=== PATIENT | male | born 1975 | race African-American/Black ===

== ENCOUNTER 2018-05-02 15:02 | Outpatient (CLI) | payer BC ==
--- NOTE | 2018-05-02 15:56 | RAD ---
LEFT KNEE FOUR VIEWS: History: Left knee pain. FINDINGS/IMPRESSION: No fracture, dislocation, or other significant acute osseous abnormality. POS: [facility]
== END 2018-05-02 15:03 | disposition home or self-care (01) ==
LOC: RAD-FRANK 15:02
PROVIDERS: ATTEND Internal Medicine
DX: M25.562 Pain in left knee (principal)

== ENCOUNTER 2018-06-07 20:07 | Emergency (ER) | payer BC ==
[2018-06-07 20:38] LABS: #Basophils 0.2 thou/uL (0.0-0.2); #Eosinphils 0.4 thou/uL (0.0-0.7); #Lymphocytes 2.9 thou/uL (1.20-3.40); #Monocytes 0.6 thou/uL (0.11-0.59); %Basophils 2.9 % (0.0-1.0); %Eosinophils 6.3 % (0.0-10.0); %Lymphocytes 48.3 % (21.0-51.0); %Monocytes 10.3 % (0.0-10.0); %Neutrophils 32.2 % (42.0-75.0); Hemoglobin 12.9 g/dL (14.0-18.0); Mean Corpuscular HGB CONC 32.1 g/dL (32.0-36.0); Mean Corpuscular Hemoglobin 27.7 pg (27.0-31.0); Mean Corpuscular Volume 86.2 fL (78.0-98.0); Mean Platelet Volume 8.5 fL (7.4-10.4); Platelet Count 267 thou/uL (130-400); RBC Distribution Width 13.3 % (11.5-14.5); Red Blood Cell (RBC) Count 4.64 mill/uL (4.70-6.10); White Blood Cell (WBC) Count 6.1 thou/uL (4.8-10.8)
[2018-06-07 20:52] LABS: ALT (SGPT) 34 U/L (8-55); AST (SGOT) 30 U/L (5-34); Albumin 4.4 g/dL (3.5-5.0); Alkaline Phosphatase 73 U/L (40-150); Anion Gap 12 mmol/L (10-20); BUN (Urea Nitrogen) 14 mg/dL (8.9-20.6); Bilirubin, Total 0.2 mg/dL (0.2-1.2); Calc. Creatinine Clearance 0 mL/min (70-130); Calcium 9.9 mg/dL (7.8-10.44); Carbon Dioxide 28 mmol/L (22-29); Chloride 103 mmol/L (98-107); Estimated GFR-MDRD Greater than 90; Globulin 3.3 g/dL (2.4-3.5); Glucose 90 mg/dL (70-105); Potassium 4.3 mmol/L (3.5-5.1); Protein, Total 7.7 g/dL (6.0-8.3); Sodium 139 mmol/L (136-145)
--- NOTE | 2018-06-07 21:27 | CT ---
CT ABDOMEN AND PELVIS WITH IV CONTRAST: 06/07/18 HISTORY: Right lower quadrant pain. COMPARISON: 12/08/13. FINDINGS: The lung bases are clear. Small left renal cysts are stable. Appendix is not inflamed. Large amount o f abdominal fat protrudes through an umbilical hernia. No bowel extends into the hernia. Urinary blad nerissa is unremarkable. IMPRESSION: Large fat containing umbilical hernia. No acute abnormalities of the abdomen are demonstrated. POS: [facility]
== END 2018-06-07 21:17 | disposition home or self-care (01) ==
LOC: SCSER 20:07
DX: K42.9 Umbilical hernia without obstruction or gangrene (principal); Z79.899 Other long term (current) drug therapy
CPT/HCPCS: 74177; 80053; 85025

== ENCOUNTER 2019-05-06 13:30 | Inpatient (IN) | payer BC, OTHER ==
[~2019-05-06 13:30] MED LIST: Iopamidol-370 76% 500 ML 1 ML ONE
[2019-05-06] MEDS ORDERED: Ondansetron PF 4 MG/2 ML Vial ONE (13:47)
[2019-05-06] MEDS ORDERED: Fentanyl 100 MCG/2 ML VIAL ONE (13:47)
[2019-05-06 14:08] LABS: #Basophils 0.1 thou/uL (0.0-0.2); #Eosinphils 0.4 thou/uL (0.0-0.7); #Lymphocytes 2.3 thou/uL (1.20-3.40); #Monocytes 0.7 thou/uL (0.11-0.59); %Basophils 1.2 % (0.0-1.0); %Eosinophils 5.5 % (0.0-10.0); %Lymphocytes 30.3 % (21.0-51.0); %Monocytes 8.9 % (0.0-10.0); %Neutrophils 54.1 % (42.0-75.0); Hemoglobin 13.7 g/dL (14.0-18.0); Mean Corpuscular HGB CONC 33.1 g/dL (32.0-36.0); Mean Corpuscular Hemoglobin 29.7 pg (27.0-31.0); Mean Corpuscular Volume 89.8 fL (78.0-98.0); Mean Platelet Volume 8.5 fL (7.4-10.4); Platelet Count 227 thou/uL (130-400); Red Blood Cell (RBC) Count 4.61 mill/uL (4.70-6.10); White Blood Cell (WBC) Count 7.5 thou/uL (4.8-10.8)
[2019-05-06] MEDS ORDERED: Tranexamic Acid 1,000 MG/10 ML VIAL ONE (14:29)
[2019-05-06 14:33] LABS: ALT (SGPT) 32 U/L (8-55); AST (SGOT) 28 U/L (5-34); Albumin 4.3 g/dL (3.5-5.0); Alkaline Phosphatase 75 U/L (40-110); Anion Gap 9 mmol/L (10-20); BUN (Urea Nitrogen) 11 mg/dL (8.9-20.6); Bilirubin, Total 0.3 mg/dL (0.2-1.2); Calc. Creatinine Clearance 0 mL/min (70-130); Calcium 9.2 mg/dL (7.8-10.44); Carbon Dioxide 33 mmol/L (22-29); Chloride 100 mmol/L (98-107); Estimated GFR-MDRD Greater than 90; Globulin 3.2 g/dL (2.4-3.5); Glucose 104 mg/dL (70-105); Lipase 31 U/L (8-78); Potassium 4.2 mmol/L (3.5-5.1); Protein, Total 7.5 g/dL (6.0-8.3); Sodium 138 mmol/L (136-145)
[2019-05-06 15:34] LABS: Bacteria/HPF None Seen HPF (None Seen); Bilirubin Negative (Negative); Blood, Urine Negative (Negative); Clarity Clear (Clear); Glucose, Urine (Dipstick) Normal (Negative); Leukocyte Negative Leu/uL (Negative); Nitrite Negative (Negative); Protein, Urine (Dipstick) 70 mg/dL (Neg-Trace); RBC/HPF 0-3 HPF (0-3); Squamous Epithelial None Seen HPF (0-3); Urobilinogen Normal mg/dL (Less than 2); WBC/HPF 0-3 HPF (0-3)
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
[2019-05-06] MEDS ORDERED: Ketorolac Tromethamine 60 MG/2 ML VIAL ONE (17:30)
[2019-05-06 17:33] LABS: Troponin I Less than 0.010 ng/mL (< 0.028)
[2019-05-06] MEDS ORDERED: Acetaminophen 325 MG TAB PO PRN ×2 (18:56→22:24)
[2019-05-06] MEDS ORDERED: Ondansetron ODT 4 MG TAB SL PRN (18:56)
[2019-05-06] MEDS ORDERED: Ondansetron PF 4 MG/2 ML Vial IVP PRN (18:56)
[2019-05-06 20:14] VITALS: BMI 47.0
[2019-05-06 20:38] LABS: Troponin I Less than 0.010 ng/mL (< 0.028)
[2019-05-06] MEDS ORDERED: traMADol HCl 50 MG TAB PO PRN (22:21)
[2019-05-06] MEDS ORDERED: Sodium Chloride 0.9% 1,000 ML IV SCH (22:30)
--- NOTE | 2019-05-06 23:32 | PDOC.EVN ---
Event Note - Event Note Event Note: RN called - Pt has brief episodes of Apnea even while talking. Will get ABGs
[2019-05-06 23:44] LABS: Actual Bicarbonate (HCO3a) 31.4 mEq/L (22-28); Base Excess (BEa) 2.9 mEq/L (-2.0 to +3.0); Carboxyhemoglobin (COHb) 1.2 gm% (0.0-3.0); Hemoglobin (Hb) 13.3 g/dL (14.0-18.0); pH, Arterial 7.29 (7.35-7.45)
[2019-05-07 00:51] VITALS: BP 149/86
[2019-05-07 00:59] LABS: CO2 Tension 66.9 mmHg (35.0-45.0); O2 Tension (PaO2) 35.9 mmHg (80.0-100.0)
[2019-05-07 01:00] LABS: ALV-art Gradient 80.115 (0-20); Puncture Site RRA
[2019-05-07] MEDS ORDERED: hydrALAZINE 20 MG/ML VIAL SLOW IVP PRN (02:04)
[2019-05-07] MEDS ORDERED: Nitroglycerin 0.4 MG TAB (25 Tab Bottle) PO PRN (02:43)
[2019-05-07] MEDS ORDERED: Calcium Carbonate 500 MG ChewTAB PO PRN (02:45)
[2019-05-07] MEDS ORDERED: Senokot S 8.6-50 MG TAB PO PRN (02:45)
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
[2019-05-07] MEDS: Sodium Chloride 0.9% 1,000 ML IV SCH ×2 (03:29→19:38)
[2019-05-07 04:25] LABS: ALT (SGPT) 32 U/L (8-55); AST (SGOT) 26 U/L (5-34); Albumin 4.2 g/dL (3.5-5.0); Alkaline Phosphatase 69 U/L (40-110); Anion Gap 10 mmol/L (10-20); BUN (Urea Nitrogen) 11 mg/dL (8.9-20.6); Bilirubin, Total 0.2 mg/dL (0.2-1.2); Calc. Creatinine Clearance 156 mL/min (70-130); Carbon Dioxide 34 mmol/L (22-29); Cardiac Risk 4.8 (Less than 4.5); Chloride 101 mmol/L (98-107); Cholesterol 150 mg/dl (< 200 Desired); Estimated GFR-MDRD 86; Globulin 3.1 g/dL (2.4-3.5); Glucose 110 mg/dL (70-105); HDL Cholesterol 31 mg/dL (>60 Neg Risk); LDL Cholesterol, Calculated 107 mg/dL; Magnesium 1.7 mg/dL (1.6-2.6); Potassium 4.5 mmol/L (3.5-5.1); Protein, Total 7.3 g/dL (6.0-8.3); Sodium 140 mmol/L (136-145); Triglycerides 62 mg/dL (Less than 150)
[2019-05-07 04:29] LABS: Amphetamine Not Detected (NotDetected); Barbiturates Screen Not Detected (NotDetected); Benzodiazepine Screen Not Detected (NotDetected); Cocaine Metabolite Screen Not Detected (NotDetected); Medtox Control Line Valid? VALID (VALID); Medtox Reader # READER 1; Methadone Not Detected (NotDetected); Methamphetamine Not Detected (NotDetected); Opiate Screen Not Detected (NotDetected); Oxycodone Screen Not Detected (NotDetected); Phencyclidine (PCP) Not Detected (NotDetected); THC/Cannabinoid Screen Not Detected (NotDetected); Tricyclic Screen Not Detected (NotDetected)
[2019-05-07] MEDS ORDERED: Magnesium 2 GM/50 ML 2 GM in Premix Bag 1 BAG IVPB SCH (04:30)
[2019-05-07] MEDS ORDERED: FLU VACC QS2019-20(6MOS UP)/PF 60 MCG/0.5 ML SYRINGE IM ONE (09:00)
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
[2019-05-07] MEDS: Aspirin 81 mg Enteric Coated Tablet PO SCH (10:15)
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
--- NOTE | 2019-05-07 12:59 | RAD ---
EXAM: Chest 2 views: HISTORY: Respiratory failure COMPARISON: Scheduling Clerk from chest CT 05/06/2019 FINDINGS: Poor inspiration. Heart size:Within normal limits. Lungs:Clear of acute process. Atherosclerotic changes of the aorta. No confluent pneumonia, overt edema, pleural effusion, pneumothorax, or other significant acute proce ss. IMPRESSION: Atherosclerosis of the aorta. No acute intrathoracic disease.
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
[2019-05-08 03:18] VITALS: TEMP 97.9
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
[2019-05-08] MEDS: Aspirin 81 mg Enteric Coated Tablet PO SCH (09:42)
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
== END 2019-05-08 11:00 | disposition home or self-care (01) | DRG 189 ==
LOC: ERS 13:30 → IMCU/EMU 18:35 → OBSVTOIN 18:38 → 2SW 18:38 → IMCU/EMU 05-07 00:42
PROVIDERS: ADMIT Internal Medicine; ATTEND Internal Medicine
PROC: 3E0234Z Introduction of Serum, Toxoid and Vaccine into Muscle, Percutaneous Approach (ICD-10-PCS; principal; 2019-05-06)
DX: J96.21 Acute and chronic respiratory failure with hypoxia (principal); E66.2 Morbid (severe) obesity with alveolar hypoventilation; Z68.42 Body mass index [BMI] 45.0-49.9, adult; J96.22 Acute and chronic respiratory failure with hypercapnia; Z23 Encounter for immunization; K42.9 Umbilical hernia without obstruction or gangrene; D64.9 Anemia, unspecified; Z91.013 Allergy to seafood
CPT/HCPCS: 36415; 70450; 71046; 71260; 72125; 74177; 80053; 80061; 80306; 81003; 81015; 82805; 83605; 83690; 83735; 84443; 84484; 85025; 90471; 90686; 93005; 93306; 94760; 96374; 96375; G0008; J1885; J2405; J3010; J3475; Q9967

== ENCOUNTER 2021-03-11 09:32 | Inpatient (IN) | payer OTHER, SELFPAY ==
[2021-03-11] MEDS ORDERED: Iopamidol-370 76% 500 ML 1 ML ONE (09:58)
[2021-03-11] MEDS ORDERED: Morphine 4 MG/ML VIAL ONE (11:41)
[2021-03-11] MEDS ORDERED: Ondansetron PF 4 MG/2 ML Vial ONE ×2 (11:41→17:24)
[2021-03-11 12:02] LABS: #Basophils 0.1 thou/uL (0.0-0.2); #Eosinphils 0.6 thou/uL (0.0-0.7); #Lymphocytes 2.3 thou/uL (1.20-3.40); #Monocytes 0.8 thou/uL (0.11-0.59); #Neutrophils 3.2 thou/uL (1.40-6.50); %Basophils 0.8 % (0.0-1.0); %Eosinophils 8.2 % (0.0-10.0); %Lymphocytes 33.7 % (21.0-51.0); %Monocytes 10.9 % (0.0-10.0); %Neutrophils 46.5 % (42.0-75.0); Hemoglobin 13.4 g/dL (14.0-18.0); Mean Corpuscular HGB CONC 32.1 g/dL (32.0-36.0); Mean Corpuscular Hemoglobin 29.5 pg (27.0-31.0); Platelet Count 274 thou/uL (130-400); RBC Distribution Width 12.8 % (11.5-14.5); Red Blood Cell (RBC) Count 4.52 mill/uL (4.70-6.10); White Blood Cell (WBC) Count 6.8 thou/uL (4.8-10.8)
[2021-03-11 12:28] LABS: ALT (SGPT) 38 U/L (8-55); AST (SGOT) 31 U/L (5-34); Albumin 3.8 g/dL (3.5-5.0); Alkaline Phosphatase 75 U/L (40-110); Anion Gap 11 mmol/L (10-20); BUN (Urea Nitrogen) 11 mg/dL (8.9-20.6); Bilirubin, Total 0.2 mg/dL (0.2-1.2); Calc. Creatinine Clearance 0 mL/min (70-130); Calcium 9.3 mg/dL (7.8-10.44); Carbon Dioxide 29 mmol/L (22-29); Chloride 100 mmol/L (98-107); Globulin 3.9 g/dL (2.4-3.5); Glucose 107 mg/dL (70-105); Lipase 39 U/L (8-78); Potassium 4.1 mmol/L (3.5-5.1); Protein, Total 7.7 g/dL (6.0-8.3); Sodium 136 mmol/L (136-145)
[2021-03-11] MEDS ORDERED: Piperacillin/Tazobactam 4.5 GM VIAL ONE (12:40)
[2021-03-11 15:30] LABS: SARS-CoV-2 NAA Rapid Test Not Detected (NotDetected)
[2021-03-11] MEDS ORDERED: Promethazine HCl 25 MG/ML VIAL IM PRN ×2 (16:04→18:01)
[2021-03-11] MEDS ORDERED: hydrALAZINE 20 MG/ML VIAL SLOW IVP PRN (16:04)
[2021-03-11] MEDS ORDERED: HumaLOG 300 UNITS/3 ML VIAL SC PRN (16:04)
[2021-03-11] MEDS ORDERED: Dextrose 5% in Water 1,000 ML IV PRN (16:04)
[2021-03-11] MEDS ORDERED: Ondansetron PF 4 MG/2 ML Vial IVP PRN (16:04)
[2021-03-11] MEDS ORDERED: Dextrose 50% Abboject 50 ML SYRINGE SLOW IVP PRN (16:04)
[2021-03-11] MEDS ORDERED: Morphine 4 MG/ML VIAL SLOW IVP PRN (16:09)
[2021-03-11] MEDS ORDERED: traMADol HCl 50 MG TAB PO PRN (16:09)
[2021-03-11] MEDS ORDERED: Bupivacaine 0.25% 10 ML VIAL ONE (16:58)
[2021-03-11] MEDS ORDERED: Bupivacaine PF 0.5% 30 ML VIAL ONE (16:58)
[2021-03-11] MEDS ORDERED: EPINEPHrine 1 MG/ML AMP ONE (16:58)
[2021-03-11] MEDS ORDERED: Famotidine/PF 20 mg/2ml Vial ONE (16:59)
[2021-03-11] MEDS ORDERED: Fentanyl 100 MCG/2 ML VIAL ONE (16:59)
[2021-03-11] MEDS ORDERED: Naloxone HCl 0.4 mg/ml Vial ONE (17:24)
[2021-03-11] MEDS ORDERED: Succinylcholine 200 MG/10 ml SYRINGE FS ONE (17:24)
[2021-03-11] MEDS ORDERED: Lidocaine 1% PF 5 ML VIAL ONE (17:24)
[2021-03-11] MEDS ORDERED: Rocuronium Bromide 10 MG/ML (10ML VIAL) ONE (17:24)
[2021-03-11] MEDS ORDERED: Ketorolac Tromethamine 30 MG/ML VIAL ONE (17:24)
[2021-03-11] MEDS ORDERED: PROPOFOL 200 MG/20 ML VIAL ONE (17:24)
[2021-03-11] MEDS ORDERED: SUGAMMADEX SODIUM 200 MG/2 ML VIAL ONE (17:36)
[2021-03-11] MEDS ORDERED: PACU-Morphine 4MG/ML VIAL SLOW IVP PRN (18:01)
[2021-03-11] MEDS ORDERED: Promethazine HCl 25 MG/ML VIAL IVPB PRN (18:01)
[2021-03-11] MEDS ORDERED: ceFOXitin 1 GM VIAL ONE (18:22)
[2021-03-11] MEDS: Sodium Chloride 0.9% 1,000 ML IV SCH (21:50)
[2021-03-11] MEDS: traMADol HCl 50 MG TAB PO SCH (21:51)
[2021-03-11] MEDS: Acetaminophen 500 MG TAB PO SCH (21:51)
[2021-03-11] MEDS: Piperacillin/Tazobactam 3.375 GM in Sodium Chloride 0.9% 100 ML IVPB SCH (21:54)
[2021-03-11] MEDS: Famotidine/PF 20 mg/2ml Vial SLOW IVP SCH (22:03)
[2021-03-11] MEDS: Senokot S 8.6-50 MG TAB PO SCH (22:04)
[2021-03-12] MEDS: Acetaminophen 500 MG TAB PO SCH ×4 (00:31→19:04)
[2021-03-12] MEDS: traMADol HCl 50 MG TAB PO SCH ×4 (00:32→19:04)
[2021-03-12] MEDS: Piperacillin/Tazobactam 3.375 GM in Sodium Chloride 0.9% 100 ML IVPB SCH ×3 (05:41→20:57)
[2021-03-12 05:54] LABS: #Eosinphils 0.4 thou/uL (0.0-0.7); #Lymphocytes 1.5 thou/uL (1.20-3.40); #Monocytes 0.8 thou/uL (0.11-0.59); #Neutrophils 6.3 thou/uL (1.40-6.50); %Basophils 0.4 % (0.0-1.0); %Eosinophils 4.1 % (0.0-10.0); %Lymphocytes 16.7 % (21.0-51.0); %Monocytes 8.8 % (0.0-10.0); %Neutrophils 70.1 % (42.0-75.0); Hemoglobin 12.3 g/dL (14.0-18.0); Mean Corpuscular HGB CONC 31.3 g/dL (32.0-36.0); Mean Corpuscular Hemoglobin 29.1 pg (27.0-31.0); Mean Corpuscular Volume 92.9 fL (78.0-98.0); Mean Platelet Volume 8.1 fL (7.4-10.4); Platelet Count 274 thou/uL (130-400); RBC Distribution Width 12.8 % (11.5-14.5); Red Blood Cell (RBC) Count 4.24 mill/uL (4.70-6.10); White Blood Cell (WBC) Count 8.9 thou/uL (4.8-10.8)
[2021-03-12 06:18] LABS: Anion Gap 9 mmol/L (10-20); BUN (Urea Nitrogen) 12 mg/dL (8.9-20.6); Calc. Creatinine Clearance 0 mL/min (70-130); Calcium 8.9 mg/dL (7.8-10.44); Carbon Dioxide 30 mmol/L (22-29); Chloride 101 mmol/L (98-107); Glucose 116 mg/dL (70-105); Potassium 5.1 mmol/L (3.5-5.1); Sodium 135 mmol/L (136-145)
[2021-03-12] MEDS: Sodium Chloride 0.9% 1,000 ML IV SCH ×3 (07:34→17:53)
[2021-03-12] MEDS: Senokot S 8.6-50 MG TAB PO SCH ×2 (10:14→20:57)
[2021-03-12] MEDS: Famotidine/PF 20 mg/2ml Vial SLOW IVP SCH ×2 (10:15→20:57)
[2021-03-12] MEDS: Polyethylene Glycol 3350 17 GM Packet PO SCH (10:16)
[2021-03-13] MEDS: traMADol HCl 50 MG TAB PO SCH ×4 (00:53→18:50)
[2021-03-13] MEDS: Acetaminophen 500 MG TAB PO SCH ×4 (00:53→18:50)
[2021-03-13] MEDS: Sodium Chloride 0.9% 1,000 ML IV SCH ×2 (05:33→18:55)
[2021-03-13] MEDS: Piperacillin/Tazobactam 3.375 GM in Sodium Chloride 0.9% 100 ML IVPB SCH ×3 (05:37→21:13)
[2021-03-13] MEDS: Famotidine/PF 20 mg/2ml Vial SLOW IVP SCH ×2 (09:31→21:14)
[2021-03-13] MEDS: Polyethylene Glycol 3350 17 GM Packet PO SCH (09:32)
[2021-03-13] MEDS: Senokot S 8.6-50 MG TAB PO SCH ×2 (09:39→21:14)
[2021-03-13 18:27] LABS: Actual Bicarbonate (HCO3a) 35.2 mEq/L (22-28); Base Excess (BEa) 5.8 mEq/L (-2.0 to +3.0); Calcium, Ionized (arterial) 1.17 mmol/L (1.12-1.30); Carboxyhemoglobin (COHb) 1.2 gm% (0.0-3.0); Hemoglobin (Hb) 13.5 g/dL (14.0-18.0); O2 Tension (PaO2), arterial 66.2 mmHg (80.0-100.0); Potassium - ABG Lab 4.68 mmol/L (3.70-5.30); pH, Arterial 7.28 (7.35-7.45)
[2021-03-13 18:28] LABS: CO2 Tension 76.2 mmHg (35.0-45.0); Puncture Site RRA
[2021-03-14] MEDS: Acetaminophen 500 MG TAB PO SCH ×5 (00:38→23:55)
[2021-03-14] MEDS: Piperacillin/Tazobactam 3.375 GM in Sodium Chloride 0.9% 100 ML IVPB SCH ×3 (05:12→21:18)
[2021-03-14] MEDS: Famotidine/PF 20 mg/2ml Vial SLOW IVP SCH ×2 (08:22→21:18)
[2021-03-14] MEDS: Polyethylene Glycol 3350 17 GM Packet PO SCH (08:22)
[2021-03-14] MEDS: Senokot S 8.6-50 MG TAB PO SCH ×2 (08:22→21:18)
[2021-03-14] MEDS ORDERED: MINERAL OIL 30 ML UDCUP PO SCH (10:00)
[2021-03-14] MEDS ORDERED: Magnesium Citrate 300 ML BOT PO SCH (11:00)
[2021-03-15] MEDS: Acetaminophen 500 MG TAB PO SCH ×3 (01:37→11:03)
[2021-03-15] MEDS: Piperacillin/Tazobactam 3.375 GM in Sodium Chloride 0.9% 100 ML IVPB SCH ×2 (05:13→13:20)
[2021-03-15] MEDS: Polyethylene Glycol 3350 17 GM Packet PO SCH (08:43)
[2021-03-15] MEDS: Senokot S 8.6-50 MG TAB PO SCH (08:43)
[2021-03-15] MEDS: Famotidine/PF 20 mg/2ml Vial SLOW IVP SCH (08:44)
[2021-03-15 11:40] VITALS: BP 134/89; TEMP 97.8
== END 2021-03-15 14:02 | disposition home or self-care (01) | DRG 341 ==
LOC: ERS 09:32 → SURG A 14:37 → SJJU 21:23 → OBSVTOIN 03-12 14:51
PROVIDERS: ADMIT Surgery; ATTEND Internal Medicine
PROC: 0WQF0ZZ Repair Abdominal Wall, Open Approach (ICD-10-PCS; principal; 2021-03-11)
PROC: 0DTJ4ZZ Resection of Appendix, Percutaneous Endoscopic Approach (ICD-10-PCS; 2021-03-11)
PROC: 0DBU0ZZ Excision of Omentum, Open Approach (ICD-10-PCS; 2021-03-11)
DX: K35.80 Unspecified acute appendicitis (principal); J96.02 Acute respiratory failure with hypercapnia; J96.01 Acute respiratory failure with hypoxia; K43.6 Other and unspecified ventral hernia with obstruction, without gangrene; E87.1 Hypo-osmolality and hyponatremia; Z68.41 Body mass index [BMI] 40.0-44.9, adult; Z20.822 Contact with and (suspected) exposure to COVID-19; R16.0 Hepatomegaly, not elsewhere classified; I51.7 Cardiomegaly; D64.9 Anemia, unspecified; I10 Essential (primary) hypertension; E78.5 Hyperlipidemia, unspecified; E66.01 Morbid (severe) obesity due to excess calories; G47.33 Obstructive sleep apnea (adult) (pediatric); E11.9 Type 2 diabetes mellitus without complications; Z90.2 Acquired absence of lung [part of]; Z91.19 Patient's noncompliance with other medical treatment and regimen
CPT/HCPCS: 36415; 36416; 36600; 71045; 74177; 80048; 80053; 82805; 83605; 83690; 84484; 85025; 88304; 88305; 94640; 94660; 96365; 96375; 96376; A4649; G0378; J0171; J0694; J1885; J2270; J2310; J2405; J2543; J2704; J3010; J3490; J7050; J7620; Q9967; S0020; S0028; U0002